=== PATIENT | male | born 1970 | race Caucasian/White ===

== ENCOUNTER 2017-11-02 08:28 | Emergency (ER) | payer OTHER, SELFPAY ==
[2017-11-02 08:30] VITALS: BP 168/111; PULSE 91; RESP 20; TEMP 36; O2SAT 100; BMI 28.0
[2017-11-02] MEDS: TET,DIPH,PERTUSS(ACELL),VAC/PF 0.5 ML SYRINGE IM (08:54)
--- NOTE | 2017-11-02 08:55 | DI.RAD.S_ITS ---
PROCEDURE: XR FINGER RT MIN 2V INDICATIONS: crush injury 3rd digit TECHNIQUE: AP hand, 2 views of the third finger(s) acquired. COMPARISON: None. FINDINGS: Bones: No dislocations. No suspicious bony lesions. There is an avulsion fracture across the tuft of the third digit with overlying soft tissue swelling. Soft tissues: No suspicious soft tissue calcifications. IMPRESSION: Third digit soft tissue tuft fracture, overlying soft tissue swelling. Dictated by: Antonio Angela M.D. on 11/02/2017 at 9:15 Approved by: Antonio Angela M.D. on 11/02/2017 at 9:15
[2017-11-02 10:09] VITALS: BP 158/103; PULSE 87; RESP 16; O2SAT 98
--- NOTE | 2017-11-03 07:45 | ED_ITS ---
HPI - Wound/Laceration General Chief Complaint: Wound/Laceration Stated Complaint: SMASHED FINGER Time Seen by Provider: 11/02/17 08:29 Source: patient Mode of arrival: ambulatory Limitations: no limitations History of Present Illness HPI narrative: 47-year-old male, every day smoker presents with a work related injury of his right middle finger. Heavy object fell on the tip of his finger and he now has pain and a laceration of the tip of his finger. The pain is worse with motion and improves with rest. His tetanus will need to be updated today. He denies other injury nor history of injury to this finger. He has no numbness, tingling or weakness. Onset (ago): minute(s) Extremity Location: Right: hand [address]: work Patient tetanus UTD: No Context: accidental Associated symptoms: pain Treatments prior to arrival: bandage Related Data Previous Rx's Medication Instructions Recorded cephalexin [Keflex] 500 mg PO QID 7 Days #28 cap 11/02/17 oxycodone 5 mg PO Q4-6H PRN #10 cap 11/02/17 Allergies Allergy/AdvReac Type Severity Reaction Status Date / Time From Vicodin Allergy Unknown EMESIS Uncoded 05/23/17 13:11 Review of Systems Review of Systems All systems reviewed & are unremarkable except as noted in HPI and below Constitutional Denies chills, Denies fever(s), Denies lethargy and Denies weakness Eyes Denies change in vision, Denies eye discharge, Denies irritation and Denies loss of vision ENT Ears, Nose, Mouth, and Throat: Denies change in voice, Denies neck pain and Denies sore throat Cardiovascular Denies chest pain, Denies irregular heart rhythm, Denies lightheadedness, Denies palpitations, Denies dyspnea, Denies dyspnea on exertion and Denies orthopnea Respiratory Denies cough, Denies dyspnea, Denies dyspnea on exertion and Denies wheezing Gastrointestinal Gastrointestinal: Denies abdominal pain, Denies change in bowel habits, Denies diarrhea, Denies nausea and Denies vomiting Genitourinary Denies hematuria, Denies flank pain, Denies urinary incontinence and Denies urinary urgency Musculoskeletal Reports limited range of motion and Denies neck pain Integumentary/Breasts Denies pruritus, Denies erythema, Denies rash and Denies wounds Neurologic Denies confusion, Denies loss of vision and Denies weakness Psychiatric Denies anxiety, Denies confusion, Denies depression, Denies homicidal ideation and Denies suicidal ideation Endocrine Denies palpitations Hematologic/Lymphatic Denies easy bruising Allergic/Immunologic Denies wheezing FOR[facility]LY [facility] Social History Smoking Status: Current every day smoker Exam Narrative Exam Narrative: 47-year-old male obviously in pain, clutching his bandaged right middle finger Initial Vital Signs Initial Vital Signs: Vital Signs Temperature 96.8 F L 11/02/17 08:30 Pulse Rate 91 H 11/02/17 08:30 Respiratory Rate 20 11/02/17 08:30 Blood Pressure 168/111 H 11/02/17 08:30 Pulse Oximetry 100 11/02/17 08:30 Const General: cooperative, well developed and in distress Nutritional Appearance: well nourished Orientation: alert, awake, oriented x3 and not confused HENMT Head: normocephalic and atraumatic Ears: external ears normal and TM's normal bilaterally Nose: external nose normal and No nasal discharge Face and sinus: sinuses nontender, face symmetric, no sinus tenderness and No dry mucous membranes Mouth: oral mucosae normal and moist mucous membranes Teeth and gingiva: dentition normal Throat: tonsils normal and uvula midline Eyes General: appearance normal, both eyes and all related structures Eyelids: eyelids normal Conjunctivae: conjunctivae normal Sclera: sclerae normal Pupils: PERRL EOM: EOM intact bilaterally Resp Effort & Inspection: normal respiratory effort, able to speak in complete sentences, no respiratory distress and no use of accessory muscles Auscultation: clear to auscultation bilaterally, no rales, no rhonchi and no wheezes GI Inspection: non-distended Palpation: soft, no hepatosplenomegaly, No guarding, No pulsatile mass and No tender Auscultation: normal bowel sounds Back/Spine/Pelvis Back: No CVA tenderness Cervical Spine: cervical ROM normal and No pain with cervical ROM Thoracic/Lumbar Spine: thoracic and lumbar spine normal to inspection Skin Trauma: laceration (Finger pad right middle finger, slow trickle bleeding) Neuro General: alert, oriented x3, gait normal and no focal motor deficits Speech: speech normal Sensory Exam: no sensory deficits noted Extrem Right upper extremity: hand (Full but painful range of motion of right middle finger. Swelling to distal phalanx and 1 cm laceration on volar surface of tip of finger. No subungual hematoma or nail involvement. No bone or tendon noted. Very minimal, slow amount of bleeding. No foreign body. Wound appears clean) Procedures Laceration Repair Laceration 1: Site: hand Side (If applicable): right Size (cm): 1 Description: irregular Depth: simple, single layer Local Anesthetic: other anesthetic (Digital block) Amount of anesthesia used (mL): 3 Pre-repair: wound explored, irrigated extensively and deep structures intact Skin layer closed with: nylon Size (cm): 4-0 Number of sutures: 2 Technique: simple, interrupted Technique: other (Nursing placed tube gauze splinting) Course Orders Ordered: Discontinued Medications Diphtheria/Tetanus/Acell Pertussis (Adacel) 0.5 ml IM .ONCE ONE Stop: 11/02/17 08:53 Last Admin: 11/02/17 08:54 Dose: 0.5 ml Reevaluation(s) Reevaluation #1: L&I form completed and submitted to Medical Records Vital Signs - 8 hr 11/02/17 08:30 Temperature 96.8 F L Pulse Rate 91 H Respiratory Rate 20 Blood Pressure 168/111 H Pulse Oximetry 100 Discharge Plan Departure Patient Disposition: Home Clinical Impression: Fracture of distal phalanx of middle finger, Laceration of finger, middle Discharge Date/Time: 11/02/17 10:35 Interventions: ED Discharge Assessment Last Done: 11/02/17 10:34 Instructions: DI for Finger Fracture Activity Restrictions/Additional Instructions: *You have been diagnosed with [ open tuft fracture right middle finger ] *What to do: *Take medications as directed Please keep the wound clean and dry to the best of your ability. Please monitor for signs of infection such as redness to the skin or increasing pain. Have the sutures removed by your doctor in about 7 days. If you are unable to get into your doctor, we would be happy to remove the sutures in that same timeframe. *Return to ER if you should have any new, worsening or concerning symptoms, such as [ worsening pain, redness or swelling] Prescriptions: New cephalexin [Keflex] 500 mg capsule 500 mg PO QID 7 Days Qty: 28 RF: 0 oxycodone 5 mg capsule 5 mg PO Q4-6H PRN (Reason: pain) Qty: 10 RF: 0 Referrals: Sundeep Olguin MD [Physician] -
== END 2017-11-02 10:36 | disposition home or self-care (01) ==
PROVIDERS: Emergency Provider Emergency Medicine
DX: S62.632B Displaced fracture of distal phalanx of right middle finger, initial encounter for open fracture (principal); W20.8XXA Other cause of strike by thrown, projected or falling object, initial encounter
CPT/HCPCS: 12001; 73140; 90471; 99283; 90715

== ENCOUNTER 2017-11-19 09:10 | Emergency (ER) | payer OTHER, SELFPAY ==
[2017-11-19 09:22] VITALS: BP 162/97; PULSE 90; RESP 15; TEMP 36.8; O2SAT 99
--- NOTE | 2017-11-19 09:58 | ED.WOUNDLAC ---
HPI - Wound/Laceration General Chief Complaint: Wound/Laceration Stated Complaint: hit lip at work Time Seen by Provider: 11/19/17 09:29 Source: patient Mode of arrival: ambulatory Limitations: no limitations History of Present Illness HPI narrative: Patient is a 47-year-old male who presents after ground level fall. He fell forward onto a boat hitting his head and cutting his upper lip. No loss of consciousness no neck pain no nausea or vomiting. His tetanus is up-to-date. Onset (ago): hour(s) Location: face Related Data Home Medications Medication Instructions Recorded Confirmed No Known Home Medications 11/19/17 11/19/17 Allergies Allergy/AdvReac Type Severity Reaction Status Date / Time hydrocodone [From Vicodin] Allergy Intermediate Vomiting Verified 11/19/17 09:32 Review of Systems Review of Systems GENERAL: Denies chills,fever HEENT: Denies throat pain RESPIRATORY: Denies dyspnea, cough, wheezing CARDIOVASCULAR: Denies chest pain, palpitations GASTROINTESTINAL: Denies nausea, vomiting MUSCULOSKELETAL: Denies extremity pain, injury SKIN: Laceration upper lip NEUROLOGIC: Denies weakness, dizziness, headache, numbness 8 point review of systems is negative except for those stated above and HPI PFSH Medical History Healthy adult (Acute) Immunizations up to date (Acute) Social History Smoking Status: Current every day smoker Exam Initial Vital Signs Initial Vital Signs: Vital Signs Temperature 98.2 F 11/19/17 09:22 Pulse Rate 90 11/19/17 09:22 Respiratory Rate 15 11/19/17 09:22 Blood Pressure 162/97 H 11/19/17 09:22 Pulse Oximetry 99 11/19/17 09:22 GENERAL: Well-appearing, well-nourished and in no acute distress. HEAD: No crepitations no depressions minor other abrasions on face with us 3 cm laceration over lip EYES: EOMI, PERRL NECK: No vertebral tenderness no step-offs full range of motion CARDIOVASCULAR: peripheral pulses in tact, cap refill <2 sec RESPIRATORY: No respiratory distress, speaks in full sentences without difficulty EXTREMITIES: Normal range of motion, no clubbing or edema. Neurovascularly intact NEUROLOGICAL: Cranial nerves II through XII grossly intact. Normal gait and speech. SKIN: Warm, dry, no petechiae, no rashes or lesions. Skin Trauma: laceration Adult Head Front: 1. 3cm Procedures Laceration Repair Laceration 1: Site: face Size (cm): 3 Description: linear Depth: simple, single layer Local Anesthetic: lidocaine 1% and with epi Amount of anesthesia used (mL): 3 Pre-repair: wound explored, irrigated extensively and deep structures intact Skin layer closed with: nylon Size (cm): 5-0 Number of sutures: 5 Technique: simple, interrupted Course Vital Signs - 8 hr 11/19/17 09:22 11/19/17 10:13 Temperature 98.2 F Pulse Rate 90 70 Respiratory Rate 15 14 Blood Pressure 162/97 H Blood Pressure [Left Arm] 144/89 H Pulse Oximetry 99 97 Discharge Plan Departure Patient Disposition: Home Clinical Impression: Laceration of lip Discharge Date/Time: 11/19/17 10:18 Interventions: ED Discharge Assessment Last Done: 11/19/17 10:17 Instructions: DI for Laceration Repair Activity Restrictions/Additional Instructions: 1. Have your suture removed in 5-7 days, you may go to walk-in clinic, return to the ER or call your primary care physician. 2. No soaking in water including dishes, bathtubs, Lakes, swimming pools etc 3. Signs of infection include, but not limited to, increased redness, increased swelling, increased pain, fever and purulent drainage, if the symptoms should arise, you may need an antibiotic and you should have a reevaluation either by your primary care provider or by the emergency department. Prescriptions: No Action No Known Home Medications RF: 0 Referrals: [facility] [Outside]
[2017-11-19 10:13] VITALS: BP 144/89; PULSE 70; RESP 14; O2SAT 97
--- NOTE | 2017-11-22 16:17 | PC.NURSE ---
follow up call, no answer
== END 2017-11-19 10:18 | disposition home or self-care (01) ==
PROVIDERS: Emergency Provider Emergency Medicine
DX: S01.511A Laceration without foreign body of lip, initial encounter (principal); W19.XXXA Unspecified fall, initial encounter
CPT/HCPCS: 12013; 12014; 99283